=== PATIENT | female | born 1945 | race Caucasian/White ===

== ENCOUNTER 2018-10-14 07:11 | Outpatient (CLI) | payer OTHER ==
[~2018-10-14 07:11] MED LIST: AVALIDE 150-12.1 TA1 PO; BONIVA150 MG; CALCIUM 600 +1 EACH PO; CARAFATE SU1 G/10 ML PO; CRESTOR20 MG PO; DIGOX250 MCG PO; DOXAZOSIN MESYLA2 MG PO; EXELON1 PATCH .1 TD; INTEGRA CAPSUL1 EACH PO; KEPPRA500 MG PO; L-ARGININE1000 MG PO; LANOXIN0.25 MG PO; PLAVIX75 MG PO; TRILEPTAL300 MG PO; VITAMIN D5000 UNIT PO; ZETIA10 MG PO; [UNRECOGNIZED DRUG - OTHER]
== END 2018-10-14 07:21 | disposition home or self-care (01) ==
LOC: TOM 07:11
DX: R10.13 Epigastric pain (principal); R10.12 Left upper quadrant pain; R10.32 Left lower quadrant pain

== ENCOUNTER → 2022-08-30 | Outpatient (CLI) | payer OTHER | END | disposition home or self-care (01) | LOC: SONOGRAMA 09:24 | PROVIDERS: ATTEND Pathology Anatomic Pathology & Clinical Pathology | DX: D34 Benign neoplasm of thyroid gland (principal); E04.9 Nontoxic goiter, unspecified; E07.9 Disorder of thyroid, unspecified; E04.2 Nontoxic multinodular goiter ==

== ENCOUNTER 2022-10-24 07:52 | Outpatient (CLI) | payer OTHER | END 2022-10-24 08:36 | disposition home or self-care (01) | LOC: TOM 07:52 | PROVIDERS: ATTEND Urology | DX: N30.10 Interstitial cystitis (chronic) without hematuria (principal) ==